=== PATIENT | male | born 1975 | race African-American/Black ===

== ENCOUNTER 2017-09-20 14:16 | Observation (INO) | payer SELFPAY ==
[~2017-09-20] VITALS: Ht 177.8 cm; Wt 88.6 kg
[2017-09-20 14:19] VITALS: BP 148/59; PULSE 83; RESP 16; TEMP 98.1; O2SAT 97
--- NOTE | 2017-09-20 15:19 | RADRPT ---
EXAM DATE/TIME: 09/20/2017 14:44 [place] COMPARISON: No previous studies available for comparison. INDICATIONS : Left sided chest pain . MEDICAL HISTORY : None. SURGICAL HISTORY : None. ENCOUNTER: Initial ACUITY: 1 day PAIN SCORE: 8/10 LOCATION: Left chest FINDINGS: PA and lateral views of the chest demonstrate the lungs to be symmetrically aerated without evidence of mass, infiltrate or effusion. The cardiomediastinal contours are unremarkable. Osseous structure s are intact. CONCLUSION: 1. No acute cardiopulmonary disease. Kimo Combs MD on September 20, 2017 at 15:17 Board Certified Radiologist. This report was verified electronically.
[2017-09-20 16:18] LABS: AUTOMATED NEUTROPHIL # 2.3 TH/MM3 (1.8-7.7); EOSINOPHIL # 0.1 TH/MM3 (0-0.4); EOSINOPHIL % 1.4 % (0.0-4.0); HEMOGLOBIN 13.9 GM/DL (13.0-17.0); LYMPH % 40.3 % (9.0-44.0); LYMPHOCYTE # 1.9 TH/MM3 (1.0-4.8); MEAN CORPUSCULAR HEMOGLOBIN 33.6 PG (27.0-34.0); MEAN CORPUSCULAR HGB CONC 34.6 % (32.0-36.0); MEAN PLATELET VOLUME 9.1 FL (7.0-11.0); MONO % 7.7 % (0.0-8.0); MONOCYTE # 0.4 TH/MM3 (0-0.9); NEUT % 49.6 % (16.0-70.0); PLATELET COUNT 178 TH/MM3 (150-450); RED BLOOD COUNT 4.13 MIL/MM3 (4.50-5.90); RED CELL DISTRIBUTION WIDTH 13.3 % (11.6-17.2); WHITE BLOOD COUNT 4.7 TH/MM3 (4.0-11.0)
[2017-09-20 16:26] LABS: PROTHROMBIN TIME - PATIENT 10.3 SEC (9.8-11.6)
[2017-09-20 16:32] LABS: BICARBONATE 27.9 MEQ/L (21.0-32.0); BLOOD UREA NITROGEN 19 MG/DL (7-18); CALCIUM 8.5 MG/DL (8.5-10.1); CHLORIDE 107 MEQ/L (98-107); CREATININE 1.04 MG/DL (0.60-1.30); GLOMERULAR FILTRATION RATE 78 ML/MIN (>89); GLUCOSE,RANDOM 98 MG/DL (74-106); MAGNESIUM 1.9 MG/DL (1.5-2.5); SODIUM (NA) 140 MEQ/L (136-145)
[2017-09-20 16:36] LABS: TROPONIN I LESS THAN 0.02 NG/ML (0.02-0.05)
--- NOTE | 2017-09-20 17:37 | PD ---
HPI Chief Complaint: Chest Pain Time Seen by Provider: 15:42 Travel History International Travel<30 days: No Contact w/Intl Traveler<30days: No Traveled to known affect area: No History of Present Illness HPI 42yo M here with c/o chest pain today. It is left sided, worst with movement and sharp. Denies any sob, n/v, diaphoresis, fever, chest pain, abdominal pain , focal weakness or numbness. Never had this before. Denies any previous stress test. PFSH Past Medical History Asthma: Yes Respiratory: Yes (ASTHMA) Past Surgical History Surgical History: No Previous Surgery Social History Alcohol Use: Yes (pint a day, cognac ) Tobacco Use: Yes Substance Use: No Allergies-Medications (Allergen,Severity, Reaction): Coded Allergies: doxycycline (Verified Allergy, Unknown, 09/20/17) Reported Meds & Prescriptions Reported Meds & Active Scripts Active No Active Prescriptions or Reported Medications Review of Systems Except as stated in HPI: all other systems reviewed are Neg Physical Exam Narrative GEN: 42yo M in mild distress. SKIN: Warm and dry. HEAD: Normocephalic, atraumatic. CV: S1, S2. No murmurs. Lungs: CTA b/l, equal breath sounds. Abd: soft, NT/ND. No rebound tenderness or guarding. Ext: No lower extremity edema. Neuro: No focal neurologic deficits. Data Data Last Documented VS Vital Signs Date Time Temp Pulse Resp B/P (MAP) Pulse Ox O2 Delivery O2 Flow Rate FiO2 09/20/17 18:22 70 18 123/82 (96) 100 Room Air 09/20/17 14:19 98.1 Orders Orders Electrocardiogram (09/20/17 14:21) Basic Metabolic Panel (Bmp) (09/20/17 14:21) Ckmb (Isoenzyme) Profile (09/20/17 14:21) Complete Blood Count With Diff (09/20/17 14:21) Magnesium (Mg) (09/20/17 14:21) Prothrombin Time / Inr (Pt) (09/20/17 14:21) Act Partial Throm Time (Ptt) (09/20/17 14:21) Troponin I (09/20/17 14:21) Chest, Pa & Lat (09/20/17 14:21) CKMB (09/20/17 15:39) CKMB% (09/20/17 15:39) Ketorolac Inj (Toradol Inj) (09/20/17 17:45) Admit Order (Ed Use Only) (09/20/17 18:54) Nitroglycerin Sl (Nitrostat Sl) (09/20/17 19:00) Labs Laboratory Tests Test 09/20/17 15:39 White Blood Count 4.7 TH/MM3 Red Blood Count 4.13 MIL/MM3 Hemoglobin 13.9 GM/DL Hematocrit 40.0 % Mean Corpuscular Volume 97.0 FL Mean Corpuscular Hemoglobin 33.6 PG Mean Corpuscular Hemoglobin Concent 34.6 % Red Cell Distribution Width 13.3 % Platelet Count 178 TH/MM3 Mean Platelet Volume 9.1 FL Neutrophils (%) (Auto) 49.6 % Lymphocytes (%) (Auto) 40.3 % Monocytes (%) (Auto) 7.7 % Eosinophils (%) (Auto) 1.4 % Basophils (%) (Auto) 1.0 % Neutrophils # (Auto) 2.3 TH/MM3 Lymphocytes # (Auto) 1.9 TH/MM3 Monocytes # (Auto) 0.4 TH/MM3 Eosinophils # (Auto) 0.1 TH/MM3 Basophils # (Auto) 0.0 TH/MM3 CBC Comment DIFF FINAL Differential Comment Prothrombin Time 10.3 SEC Prothromb Time International Ratio 1.0 RATIO Activated Partial Thromboplast Time 27.5 SEC Blood Urea Nitrogen 19 MG/DL Creatinine 1.04 MG/DL Random Glucose 98 MG/DL Calcium Level 8.5 MG/DL Magnesium Level 1.9 MG/DL Sodium Level 140 MEQ/L Potassium Level 3.8 MEQ/L Chloride Level 107 MEQ/L Carbon Dioxide Level 27.9 MEQ/L Anion Gap 5 MEQ/L Estimat Glomerular Filtration Rate 78 ML/MIN Total Creatine Kinase 255 U/L Creatine Kinase MB 2.4 NG/ML Troponin I LESS THAN 0.02 NG/ML [facility] Medical Decision Making Medical Screen Exam Complete: Yes Emergency Medical Condition: Yes Interpretation(s) EKG: NSR 68bpm. LAD. TWI III. No ST segment elevation or depression. Differential Diagnosis Musculoskeletal pain vs. GERD vs. ACS Narrative Course 42yo M with left sided chest pain, seems musculoskeletal. Labs reviewed, no leukocytosis. H/H normal. Troponin negative. CXR showed no acute cardiopulmonary disease. Pt given toradol but still in a lot of pain. Pt said he has never had this before and does not have PMD or any doctor to follow up with. Pt is a cig smoker, although no other cardiac risk factor. Will admit to chest pain center for serial EKG and cardiac enzymes. Pt already took aspirin. Will give sublingual nitro PRN chest pain. Diagnosis Primary Impression: Chest pain Qualified Codes: R07.9 - Chest pain, unspecified Admitting Information Admitting Physician Requests: Observation Scripts No Active Prescriptions or Reported Meds Liv Hart DO Sep 20, 2017 17:37
[2017-09-20] MEDS ORDERED: KETOROLAC TROMETHAMINE 60 MG/2 ML (IM) VIAL IM ONE (17:45)
[2017-09-20 18:22] VITALS: BP 123/82; PULSE 70; RESP 18; O2SAT 100
[2017-09-20] MEDS ORDERED: NITROGLYCERIN 0.4 MG SL 25 TABS/BTL SL PRN ×2 (19:00→20:15)
[2017-09-20 19:27] VITALS: BP 127/85; PULSE 81; RESP 16; O2SAT 100
[2017-09-20] MEDS ORDERED: SODIUM CHLORIDE 0.9% FLUSH 10 ML FLUSH IV FLUSH PRN (20:15)
[2017-09-20] MEDS ORDERED: ONDANSETRON HCL 4 MG/2 ML VIAL IV PUSH PRN (20:15)
[2017-09-20] MEDS ORDERED: ACETAMINOPHEN 500 MG CPLT PO PRN (20:15)
[2017-09-20] MEDS: SODIUM CHLORIDE 0.9% FLUSH 10 ML FLUSH IV FLUSH SCH (20:59)
[2017-09-20 23:00] VITALS: PULSE 75
[2017-09-20 23:15] LABS: TROPONIN I LESS THAN 0.02 NG/ML (0.02-0.05)
[2017-09-20 23:31] VITALS: BP 117/66; PULSE 73; RESP 18; TEMP 97.9; O2SAT 97
[2017-09-21 00:07] LABS: TROPONIN I LESS THAN 0.02 NG/ML (0.02-0.05)
[2017-09-21 07:15] VITALS: BP 118/74; PULSE 71; RESP 16; TEMP 97.9; O2SAT 96
[2017-09-21 07:54] VITALS: PULSE 67
[2017-09-21] MEDS: SODIUM CHLORIDE 0.9% FLUSH 10 ML FLUSH IV FLUSH SCH (09:00)
--- NOTE | 2017-09-21 10:30 | HHI.DCPOC ---
Discharge Care Plan Diagnosis: (1) Chest pain (2) Tobacco abuse Goals to Promote Your Health * To prevent worsening of your condition and complications * To maintain your health at the optimal level Directions to Meet Your Goals Take your medications as prescribed Follow your dietary instruction Follow activity as directed Keep your appointments as scheduled Take your immunizations and boosters as scheduled If your symptoms worsen call your PCP, if no PCP go to Urgent Care Center or Emergency Room Smoking is Dangerous to Your Health. Avoid second hand smoke Call the 24-hour hour crisis hotline for domestic abuse at [place] Qureshi Sep 21, 2017 10:30
--- NOTE | 2017-09-21 11:57 | HHI.HP ---
HPI Primary Care Physician No Primary Care Physician Chief Complaint Chest pain History of Present Illness This is a 42-year-old male the presents to ED via private vehicle with a complaint of left-sided chest discomfort that began yesterday. States is worse with movement. It sharp in nature. Denies shortness of breath, nausea, or diaphoresis. Is not had this in the past. States he is very active and generally does not have discomforts. Cannot recall prior cardiac workup. Review of Systems General: Patient denies fevers, chills, and recent travel HEENT: Patient denies headache, sore throat, difficulty swallowing. Cardiovascular: Has the chest discomfort as mentioned above. Denies sensation of heart beating rapidly or irregularly. No syncope. Denies diaphoresis. Respiratory: Denies shortness of breath or inspirational chest discomfort. Denies coughing wheezing or hemoptysis. GI: Patient denies nausea, vomiting, diarrhea, abdominal pain, bloody stools. Musculoskeletal: Patient denies joint pain or edema. Denies calf pain or edema. Neurovascular: Patient denies numbness, tingling, weakness in extremities. Denies headache. Endocrine: Denies polyuria and polydipsia. Hematologic: Denies easy bruising. Skin: Denies rash or itching. Past Family Social History Allergies: Coded Allergies: doxycycline (Verified Allergy, Unknown, 09/20/17) Past Medical History Tobacco abuse. Denies hypertension, hyperlipidemia, diabetes, and CAD. Past Surgical History No prior surgeries. Reported Medications Reported Meds & Active Scripts Active No Active Prescriptions or Reported Medications Family History Denies family history of CAD. Social History Smokes 1 pack of cigarettes daily. Has occasional alcohol. Smokes marijuana occasionally. Works as a cook. Physical Exam Vital Signs Vital Signs Date Time Temp Pulse Resp B/P (MAP) Pulse Ox O2 Delivery O2 Flow Rate FiO2 09/21/17 07:54 67 09/21/17 07:15 97.9 71 16 118/74 (89) 96 09/20/17 23:31 97.9 73 18 117/66 (83) 97 09/20/17 23:00 75 09/20/17 20:52 09/20/17 19:27 81 16 127/85 (99) 100 Nasal Cannula 2.00 09/20/17 18:22 70 18 123/82 (96) 100 Room Air 09/20/17 14:19 98.1 83 16 148/59 (88 97 Physical Exam GENERAL: This is a well-nourished, well-developed patient, in no apparent distress. Patient speaks in clear complete sentences. Patient is pleasant. HEENT: Head is atraumatic and normocephalic. Neck is supple without lymphadenopathy and trachea is midline. No JVD or carotid bruits. CARDIOVASCULAR: Regular rate and rhythm without murmurs, gallops, or rubs. RESPIRATORY: Clear to auscultation. Breath sounds equal bilaterally. No wheezes , rales, or rhonchi. Chest wall is nontender. No use of accessory muscles. GASTROINTESTINAL: Abdomen is nontender, nondistended. Abdomen soft. No obvious pulsatile mass or bruit. No CVA tenderness. Strong femoral pulses bilaterally. Normal bowel sounds in all quadrants. MUSCULOSKELETAL: Patient is moving upper and lower extremities freely. No calf tenderness or edema, no Homans sign. Strong pulses in upper and lower extremities. NEUROLOGICAL: Patient is alert and oriented. Cranial nerves 2-12 are grossly intact. No focal deficits and speech is clear. SKIN: No rash and turgor is normal. Laboratory Laboratory Tests Test 09/20/17 15:39 09/20/17 20:30 09/20/17 23:30 White Blood Count 4.7 Red Blood Count 4.13 Hemoglobin 13.9 Hematocrit 40.0 Mean Corpuscular Volume 97.0 Mean Corpuscular Hemoglobin 33.6 Mean Corpuscular Hemoglobin Concent 34.6 Red Cell Distribution Width 13.3 Platelet Count 178 Mean Platelet Volume 9.1 Neutrophils (%) (Auto) 49.6 Lymphocytes (%) (Auto) 40.3 Monocytes (%) (Auto) 7.7 Eosinophils (%) (Auto) 1.4 Basophils (%) (Auto) 1.0 Neutrophils # (Auto) 2.3 Lymphocytes # (Auto) 1.9 Monocytes # (Auto) 0.4 Eosinophils # (Auto) 0.1 Basophils # (Auto) 0.0 CBC Comment DIFF FINAL Differential Comment Prothrombin Time 10.3 Prothromb Time International Ratio 1.0 Activated Partial Thromboplast Time 27.5 Blood Urea Nitrogen 19 Creatinine 1.04 Random Glucose 98 Calcium Level 8.5 Magnesium Level 1.9 Sodium Level 140 Potassium Level 3.8 Chloride Level 107 Carbon Dioxide Level 27.9 Anion Gap 5 Estimat Glomerular Filtration Rate 78 Total Creatine Kinase 255 244 221 Creatine Kinase MB 2.4 2.0 1.7 Troponin I LESS THAN 0.02 LESS THAN 0.02 LESS THAN 0.02 Result Diagram: 09/20/17 1539 09/20/17 1539 Imaging Last 48 hours Impressions Chest X-Ray 09/20/17 1421 Signed Impressions: Service Date/Time: Wednesday, September 20, 2017 14:44 - CONCLUSION: 1. No acute cardiopulmonary disease. Kimo Combs MD Course EKGs are sinus rhythm without significant ST segment depressions or elevations. Caprini VTE Risk Assessment Caprini VTE Risk Assessment: No/Low Risk (score <= 1) Caprini Risk Assessment Model Point Value = 1 Point Value = 2 Point Value = 3 Point Value = 5 Age 41-60 Minor surgery BMI > 25 kg/m2 Swollen legs Varicose veins or History of unexplained or recurrent spontaneous Oral contraceptives or hormone replacement Sepsis (< 1 month) Serious lung disease, including pneumonia (< 1 month) Abnormal pulmonary function Acute myocardial infarction Congestive heart failure (< 1 month) History of inflammatory bowel disease Medical patient at bed rest Age 61-74 Arthroscopic surgery Major open surgery (> 45 min) Laparoscopic surgery (> 45 min) Malignancy Confined to bed (> 72 hours) Immobilizing plaster cast Central venous access Age >= 75 History of VTE Family history of VTE Factor V Leiden Prothrombin [id number] Lupus anticoagulant Anticardiolipin antibodies Elevated serum homocysteine Heparin-induced thrombocytopenia Other congenital or acquired thrombophilia Stroke (< 1 month) Elective arthroplasty Hip, pelvis, or leg fracture Acute spinal cord injury (< 1 month) Prophylaxis Regimen Total Risk Factor Score Risk Level Prophylaxis Regimen 0-1 Low Early ambulation 2 Moderate Order ONE of the following: *Sequential Compression Device (SCD) *Heparin 5000 units SQ BID 3-4 Higher Order ONE of the following medications: *Heparin 5000 units SQ TID *Enoxaparin/Lovenox 40 mg SQ daily (WT < 150 kg, CrCl > 30 mL/min) *Enoxaparin/Lovenox 30 mg SQ daily (WT < 150 kg, CrCl > 10-29 mL/min) *Enoxaparin/Lovenox 30 mg SQ BID (WT < 150 kg, CrCl > 30 mL/min) AND/OR *Sequential Compression Device (SCD) 5 or more Highest Order ONE of the following medications: *Heparin 5000 units SQ TID (Preferred with Epidurals) *Enoxaparin/Lovenox 40 mg SQ daily (WT < 150 kg, CrCl > 30 mL/min) *Enoxaparin/Lovenox 30 mg SQ daily (WT < 150 kg, CrCl > 10-29 mL/min) *Enoxaparin/Lovenox 30 mg SQ BID (WT < 150 kg, CrCl > 30 mL/min) AND *Sequential Compression Device (SCD) Assessment and Plan Assessment and Plan * Chest pain: Patient has had serial cardiac enzymes and EKGs for ruling out purposes. He has been seen by Dr. Zelaya cardiology in the chest pain center. He will have a Dino protocol ETT and be discharge if it is nonischemic with instructions to follow-up with PCP. Return to ED for interval issues. * Tobacco abuse: Patient has been counseled on the importance of smoking cessation. Patient is stable at this time. He is agreeable to this plan. Checo Qureshi Sep 21, 2017 11:57
--- NOTE | 2017-09-21 15:59 | TR ---
Date Performed: 09/21/2017 Time Performed: 09:55:37 DOCTOR: Elida Zelaya DRUG LIST: CLINICAL HISTORY: REASON FOR TEST: REASON FOR ENDING: OBSERVATION: CONCLUSION: BARRY PROTOCOL. NO CP. TEST STOPPED AFTER EXCEEDING GOAL HR SECONDARY TO SOB AND LEG FATIGUE.Maximum YX=990 % Max HR Achieved=97.0% Maximum XB=249/80 Total Exercise Time=11:03 COMMENTS: no ischemia
--- NOTE | 2017-09-21 16:02 | EKG ---
Date Performed: 09/20/2017 Time Performed: 23:41:06 PTAGE: 42 years EKG: Sinus rhythm NORMAL ECG Since PREVIOUS TRACING , no significant change noted PREVIOUS TRACIN09/20/2017 20.29 DOCTOR: Elida Zelaya Interpretating Date/Time 09/21/2017 16:01:13
--- NOTE | 2017-09-21 16:03 | EKG ---
Date Performed: 09/20/2017 Time Performed: 20:29:44 PTAGE: 42 years EKG: Sinus rhythm NORMAL ECG Since PREVIOUS TRACING , no significant change noted PREVIOUS TRACIN09/20/2017 15.45 DOCTOR: Elida Zelaya Interpretating Date/Time 09/21/2017 16:02:53
--- NOTE | 2017-09-21 16:06 | EKG ---
Date Performed: 09/20/2017 Time Performed: 15:45:04 PTAGE: 42 years EKG: Sinus rhythm NORMAL ECG NO PREVIOUS TRACING DOCTOR: Elida Zelaya Interpretating Date/Time 09/21/2017 16:05:38
== END 2017-09-21 11:21 | disposition home or self-care (01) ==
LOC: NEPC 14:16 → NEDA 18:56 → NEPFCDU 20:47
PROVIDERS: ADMIT Internal Medicine Cardiovascular Disease; ATTEND Internal Medicine Cardiovascular Disease
DX: R07.89 Other chest pain (principal); F17.210 Nicotine dependence, cigarettes, uncomplicated; F12.90 Cannabis use, unspecified, uncomplicated; J45.909 Unspecified asthma, uncomplicated
CPT/HCPCS: 71046; 80048; 82550; 82552; 83735; 84484; 85025; 85610; 85730; 93005; 93017; 96374; 99285; G0378; J1885